=== PATIENT | male | born 1950 | race Caucasian/White ===

== ENCOUNTER 2020-11-19 11:20 | Emergency (ER) | payer OTHER ==
[~2020-11-19] VITALS: Ht 187.9 cm; Wt 86.2 kg
[2020-11-19 11:31] VITALS: BP 151/83
[2020-11-19] MEDS ORDERED: CEPHALEXIN500 M1 PO (12:23)
[2020-11-19] MEDS ORDERED: HYDROCODONE-AC1 EAC1 PO (12:23)
[2020-11-19] MEDS ORDERED: IBUPROFEN600 MG PO (12:23)
[2020-11-19] MEDS ORDERED: SILVADENE,SSD C50 GM T (12:23)
== END 2020-11-19 13:27 | disposition home or self-care (01) ==
LOC: ED 11:20
DX: T22.20XA Burn of second degree of shoulder and upper limb, except wrist and hand, unspecified site, initial encounter (principal); T24.102A Burn of first degree of unspecified site of left lower limb, except ankle and foot, initial encounter; Z98.890 Other specified postprocedural states; X08.8XXA Exposure to other specified smoke, fire and flames, initial encounter; Y93.89 Activity, other specified; Y92.89 Other specified places as the place of occurrence of the external cause; Y99.8 Other external cause status